=== PATIENT | male | born 1995 | race Two or more races ===

== ENCOUNTER 2024-08-06 20:32 | Emergency (ER) | payer MEDICAID, SELFPAY ==
[2024-08-06 20:56] VITALS: BP 150/90; PULSE 69; RESP 16; TEMP 37.3; O2SAT 98; BMI 25.0
--- NOTE | 2024-08-06 21:04 | XR_ITS ---
Examination: CT abdomen and pelvis without contrast. Coronal 3-D reconstructions. Sagittal 2-D reconstructions. Date and time of exam: August 06, 2024 at 2131 hrs. Indications: Lower back and bilateral flank pain beginning 3 days ago CTDI: vol (mGy): 11.97 DLP: (mGycm): 692 Technique: Axial images of the abdomen have been obtained, 3 mm slice thickness Intravenous contrast material has not been administered. Low dose protocols were performed. One or more of the following dose reduction techniques were used; automated exposure control, adjustment of the mA and/or KV according to patient size, use of iterative reconstruction technique. Findings: No focal liver or splenic lesions No gallstones No pancreatic or adrenal mass No renal or ureteral calculi, no hydronephrosis Aorta normal size Normal appendix No bowel obstruction Contracted urinary bladder, no bladder calculi No prostatomegaly Osseous structures are intact Impression: No renal or ureteral calculi, no hydronephrosis Normal appendix No bladder mass or bladder calculi
--- NOTE | 2024-08-06 21:04 | PD.EDRME ---
Rapid Medical Screening Exam RME Arrival date/time: 08/06/24 20:32 29-year-old male presents emergency department complaining of bilateral flank pain with nausea that started this past Tuesday. Chief Complaint: Back Pain/Injury Time Seen by Provider: 08/06/24 20:43 Vital signs: Vital Signs Temperature 99.1 F 08/06/24 20:56 Pulse Rate 69 08/06/24 20:56 Respiratory Rate 16 08/06/24 20:56 Blood Pressure 150/90 H 08/06/24 20:56 Pulse Oximetry (%) 98 08/06/24 20:56 Oxygen Delivery Method Room Air 08/06/24 20:56 Vital signs reviewed by provider: Yes
[2024-08-06 21:49] LABS: Collection Type, Urine Clean Catch; Squamous Epithelial Cell,Urine 0 /hpf (0-5)
[2024-08-06 21:55] LABS: Basophils % (Auto) 0 % (0-2.5); Eosinophils # (Auto) 0.2 Thou/mm3 (0.0-0.5); Eosinophils % (Auto) 1 % (0-10); Hematocrit 41.8 % (41.0-53.0); Hemoglobin 14.3 g/dL (13.5-16.0); Immature Granulocytes % (Auto) 0 % (0-0); Immature Granulocytes Auto 0.03 Thou/mm3 (0.00-0.00); Lymphocytes # (Auto) 1.9 Thou/mm3 (1.0-4.8); Lymphocytes % (Auto) 18 % (10-50); Mean Corpuscular HGB Conc 34.2 g/dl (31.0-37.0); Mean Corpuscular Hemoglobin 30.5 pg (25.0-35.0); Mean Corpuscular Volume 89 fL (80-100); Monocytes # (Auto) 1.1 Thou/mm3 (0.0-0.8); Monocytes % (Auto) 10 % (0-12); Neutrophils # (Auto) 7.5 Thou/mm3 (1.8-7.7); Neutrophils % (Auto) 70 % (37-80); Nucleated Red Blood Cell % 0 /100 WBC (0); Platelet Count 238 Thou/mm3 (140-440); RDW Standard Deviation 39.4 fL (35.1-43.9); Red Blood Count 4.69 Miln/mm3 (4.50-5.90); White Blood Count 10.7 Thou/mm3 (3.8-10.6)
[2024-08-06 21:58] LABS: Bilirubin,Urine Negative (Negative); Blood,Urine Negative (Negative); Clarity,Urine Clear (Clear/Hazy); Color,Urine Colorless (Lt Yel-Yel); Culture Indicated,Urine Not Indicated; Glucose, Urine Negative (Negative); Ketones,Urine Negative (Negative); Leukocyte Esterase,Urine Negative (Negative); Nitrite,Urine Negative (Negative); Protein,Urine 1+ (Neg - Trace); RBC,Urine 1 /hpf (0-3); Specific Gravity,Urine 1.006 (1.001-1.035); Urobilinogen,Urine Negative mg/dL (0.0-1.0); WBC,Urine 2 /hpf (0-5)
[2024-08-06 22:24] LABS: Alanine Aminotransferase 22 U/L (10-49); Albumin, Serum 4.8 gm/dL (3.5-5.0); Albumin/Globulin Ratio 1.9 (1.2-2.2); Alkaline Phosphatase 74 U/L (46-116); Anion Gap 9 (7-16); Aspartate Amino Transferase 21 U/L (0-34); BUN/Creatinine Ratio 9 Ratio (12-20); Bilirubin,Total 1.2 mg/dL (0.3-1.2); Blood Urea Nitrogen 14 mg/dL (9-23); Calcium 9.7 mg/dL (8.3-10.6); Calcium (Corrected) 9.7 mg/dL (8.5-10.1); Carbon Dioxide 26.9 mMol/L (20.0-31.0); Chloride 104 mMol/L (98-107); Creatinine (Component) 1.6 mg/dL (0.6-1.3); Estimated Creatinine Clearance 60.4 mL/min (>60); Globulin 2.5 gm/dL (2.3-3.5); Glucose 98 mg/dL (74-106); Lipase 30 U/L (12-53); Osmolality,Calculated 279 (275-295); Potassium 3.6 mMol/L (3.4-5.1); Sodium 140 mMol/L (136-145); Total Protein 7.3 gm/dL (5.7-8.2); eGFR 59 See Note
--- NOTE | 2024-08-06 23:10 | EDNOTE_ITS ---
<Statement entered by Tiffanie Villeda MD - 08/13/24 17:49> As co-signing physician, I was present and available for consult prn. I concur with the plan and care as documented by the midlevel provider. ED Back Injury Pain RME/HPI General Chief Complaint: Back Pain/Injury Stated Complaint: LOWER BACK PAIN Time Seen by Provider: 08/06/24 20:43 Source: patient Arrival date/time: 08/06/24 20:32 29-year-old male presents emergency department complaining of bilateral flank pain with nausea that started this past Tuesday. Patient denies any fever, chills, vomiting, diarrhea, hematuria, dysuria, or any other associated symptom. Mode of arrival: ambulatory Limitations: no limitations RME / HPI RME / HPI Narrative: 08/06/24 20:32 29-year-old male presents emergency department complaining of bilateral flank pain with nausea that started this past Tuesday. Related Data Previous Rx's ?Medication ?Instructions ?Recorded hydrocodone 5 mg-acetaminophen 325 1 tab PO BID PRN pain #10 tabs 08/06/24 mg tablet Allergies Allergy/AdvReac Type Severity Reaction Status Date / Time No Known Allergies Allergy Verified 08/06/24 20:35 Review of Systems Review of Systems Systems Reviewed: All systems reviewed, normal except as documented Constitutional Constitutional: Reports system reviewed and no additional complaints, except as documented, Denies body ache(s), Denies chills and Denies fever(s) Eyes Eyes: Reports system reviewed and no additional complaints, except as documented and Denies change in vision ENT Ears, Nose, Mouth, and Throat: Reports system reviewed and no additional complaints, except as documented, Denies disequilibrium, Denies dizziness, Denies sore throat and Denies vertigo Cardiovascular Cardiovascular: Reports system reviewed and no additional complaints, except as documented, Denies chest pain and Denies dyspnea Respiratory Respiratory: Reports system reviewed and no additional complaints, except as documented, Denies chest congestion, Denies cough and Denies dyspnea Gastrointestinal Gastrointestinal: Reports system reviewed and no additional complaints, except as documented, Reports abdominal pain, Reports nausea and Denies vomiting Musculoskeletal Musculoskeletal: Reports system reviewed and no additional complaints, except as documented, Denies abnormal gait and Denies arthralgias Integumentary/Breasts Skin/Breast: Reports system reviewed and no additional complaints, except as documented, Denies erythema, Denies rash and Denies wounds Neurologic Neurologic: Reports system reviewed and no additional complaints, except as documented, Denies abnormal gait, Denies disequilibrium, Denies dizziness and Denies vertigo Past Medical History Social History SMOKING STATUS: Never smoker ED Exam General Limitations: Present no limitations General appearance: Present alert and in no apparent distress Head Head exam: Present atraumatic Eye Eye exam: Present normal appearance, PERRL and EOMI ENT ENT exam: Present normal exam, normal oropharynx and mucous membranes moist Neck Neck exam: Present normal inspection, full ROM and trachea midline Chest Chest inspection: Present normal inspection and symmetric chest wall rise Respiratory Respiratory exam: Present normal lung sounds bilaterally Cardiovascular Cardiovascular exam: Present regular rate, normal rhythm and normal heart sounds Abdominal Exam Abdominal exam: Present soft and normal bowel sounds Extremities Exam Extremities exam: Present normal inspection and full ROM Back Exam Back exam: Present normal inspection, full ROM, CVA tenderness (R) and CVA tenderness (L) Neurological Exam Neurological exam: Present alert, oriented X3 and CN II-XII intact Psychiatric Psychiatric exam: Present normal affect and normal mood Skin Skin exam: Present warm, dry, intact and normal color Course Quality Measures none Orders Category Date Time Status CT abdomen pelvis wo con Stat Exams 08/06/24 21:04 Completed CBC Stat Lab 08/06/24 21:48 Completed CMP [Comprehensive Metabolic Panel] Stat Lab 08/06/24 21:48 Completed Lipase Stat Lab 08/06/24 21:48 Completed Urinalysis, C/S if Indicated Stat Lab 08/06/24 21:39 Completed Vital Signs Vital signs: Vital Signs Temperature 99.1 F 08/06/24 20:56 Pulse Rate 69 08/06/24 20:56 Respiratory Rate 16 08/06/24 20:56 Blood Pressure 150/90 H 08/06/24 20:56 Pulse Oximetry (%) 98 08/06/24 20:56 Oxygen Delivery Method Room Air 08/06/24 20:56 98% room air within normal limits Back Pain / Injury MDM Narrative MDM Narrative:: 29-year-old male presents emergency department complaining of bilateral flank pain with nausea that started this past Tuesday. Patient denies any fever, chills, vomiting, diarrhea, hematuria, dysuria, or any other associated symptom. Patient appears nontoxic and hemodynamically stable. CBC mild leukocytosis 10.7. CMP elevated creatinine 1.6 with normal LFTs. Urinalysis unremarkable. CT abdomen pelvis was unremarkable for any kidney stones or hydronephrosis. Patient's abdomen is soft and nontender. Patient possibly has acute kidney injury but do not have previous labs to compare. Patient reports works in the [employer] and is unsure if he is drinking adequate amount of water. Instructed patient to drink plenty of fluids and follow-up with primary care provider in 2 to 3 days and have repeat renal function labs done to monitor trend. Instructed to return to emergency department for any worsening symptoms or as needed. Patient data External records reviewed:: None Clinical information provided by:: patient Social determinants that could affect healthcare access:: none Patient has the following chronic illnesses:: None How is presenting disease/condition affected by chronic disease/condition?: no chronic disease Evaluation data The following diagnostics were reviewed and interpreted by me:: lab results and radiology exam(s) Lab and/or radiology exams considered but not ordered:: Ordered Interpretation Summary: Interpreted by me Medications / Prescriptions Medications or Prescriptions considered but not ordered:: N/A Medication administrations:: N/A Consultations Consultation(s) initiated? (list below): No Diagnosis Differential diagnosis back pain/injury: lumbar radiculopathy, sciatica, strain of lumbar region, renal colic, pyelonephritis, thoracic back pain, AAA, discitis and other (Acute kidney injury) Most likely diagnosis given after review of the tests above:: Back pain Admission Indicated Admission indicated?: not indicated Admission Request Was there a request for admission?: No Disposition Plan Disposition Plan: Discharge Discharge Attestation Discharge Attestation: The patient and all family members were given an opportunity to ask questions and understood the discharge instructions. Discharge instructions specifically effects, indications for sooner follow up or return to the emergency department, and the expected course of current diagnosis. Patient condition: Stable Discharge Plan Plan Patient Disposition: HOME (Self Care) Disposition Comment: Stable Prescriptions/Referrals Prescriptions/Med Rec: New hydrocodone-acetaminophen 5-325 mg tablet 1 tab PO BID MDD 2 tabs PRN (Reason: pain) Qty: 10 0RF Referrals: No Primary/Family,Physician [Primary Care Provider] - In 1 week Problem List Clinical Impression: Back pain Patient/Caregiver Discharge Instructions Discharge Activity: activity as tolerated Education Materials: Anatomy of a Normal Spine, Back Basics: A Healthy Spine Additional Instructions: Take medication as prescribed. Follow-up with primary care provider in 2 to 3 days and have repeat renal function panel and request MRI of back if symptoms persist. Return to emergency department for any worsening symptoms or as needed. Print Language: [place] Stand Alone Forms: [employer] Award Info., Patient Portal Info Letter PA/SWATCH FOLDER Supervising Physician PA/SWATCH FOLDER Supervising Physician: Dr. Villeda
[2024-08-06 23:24] VITALS: RESP 18
== END 2024-08-06 23:25 | disposition home or self-care (01) ==
PROVIDERS: Emergency Provider Emergency Medicine
DX: R10.9 Unspecified abdominal pain (principal); M54.50 Low back pain, unspecified
CPT/HCPCS: 36415; 74176; 80053; 81001; 83690; 85025; 99284

== ENCOUNTER 2024-12-31 17:25 | Emergency (ER) | payer MEDICAID, SELFPAY ==
[2024-12-31 18:53] VITALS: BP 149/90; PULSE 72; RESP 18; TEMP 37.2; O2SAT 97; BMI 24.0
--- NOTE | 2024-12-31 18:54 | PD.EDRME ---
Rapid Medical Screening Exam RME Arrival date/time: 12/31/24 17:25 Chief Complaint: Urogenital-Male Time Seen by Provider: 12/31/24 18:46 Vital signs: Vital Signs Temperature 99 F 12/31/24 18:53 Pulse Rate 72 12/31/24 18:53 Respiratory Rate 18 12/31/24 18:53 Blood Pressure 149/90 H 12/31/24 18:53 Pulse Oximetry (%) 97 12/31/24 18:53 Oxygen Delivery Method Room Air 12/31/24 18:53 RME Narrative: Urinary frequency, mild dysuria, aching b/l flank pain x1 month
[2024-12-31 19:21] LABS: Collection Type, Urine Clean Catch; Squamous Epithelial Cell,Urine 0 /hpf (0-5)
[2024-12-31 19:28] LABS: Bilirubin,Urine Negative (Negative); Blood,Urine Negative (Negative); Clarity,Urine Clear (Clear/Hazy); Color,Urine Lt-Yellow (Lt Yel-Yel); Glucose, Urine Negative (Negative); Ketones,Urine Negative (Negative); Leukocyte Esterase,Urine Negative (Negative); Nitrite,Urine Negative (Negative); PH,Urine 6.5 (5.0-7.0); Protein,Urine Negative (Neg - Trace); RBC,Urine 1 /hpf (0-3); Specific Gravity,Urine 1.023 (1.001-1.035); Urobilinogen,Urine Negative mg/dL (0.0-1.0); WBC,Urine < 1 /hpf (0-5)
[2024-12-31 19:39] LABS: Basophils % (Auto) 1 % (0-2.5); Eosinophils # (Auto) 0.2 Thou/mm3 (0.0-0.5); Eosinophils % (Auto) 2 % (0-10); Hematocrit 43.5 % (41.0-53.0); Hemoglobin 15.1 g/dL (13.5-16.0); Immature Granulocytes % (Auto) 1 % (0-0); Immature Granulocytes Auto 0.06 Thou/mm3 (0.00-0.00); Lymphocytes # (Auto) 1.9 Thou/mm3 (1.0-4.8); Lymphocytes % (Auto) 22 % (10-50); Mean Corpuscular HGB Conc 34.7 g/dl (31.0-37.0); Mean Corpuscular Hemoglobin 30.6 pg (25.0-35.0); Mean Corpuscular Volume 88 fL (80-100); Monocytes # (Auto) 0.8 Thou/mm3 (0.0-0.8); Monocytes % (Auto) 9 % (0-12); Neutrophils # (Auto) 5.8 Thou/mm3 (1.8-7.7); Neutrophils % (Auto) 65 % (37-80); Nucleated Red Blood Cell % 0 /100 WBC (0); Platelet Count 236 Thou/mm3 (140-440); RDW Standard Deviation 39.8 fL (35.1-43.9); Red Blood Count 4.93 Miln/mm3 (4.50-5.90); White Blood Count 8.8 Thou/mm3 (3.8-10.6)
[2024-12-31 19:59] LABS: Alanine Aminotransferase 29 U/L (10-49); Albumin, Serum 4.9 gm/dL (3.5-5.0); Albumin/Globulin Ratio 1.8 (1.2-2.2); Alkaline Phosphatase 77 U/L (46-116); Anion Gap 9 (7-16); Aspartate Amino Transferase 25 U/L (0-34); BUN/Creatinine Ratio 19 Ratio (12-20); Bilirubin,Total 0.8 mg/dL (0.3-1.2); Blood Urea Nitrogen 17 mg/dL (9-23); Calcium 9.4 mg/dL (8.3-10.6); Calcium (Corrected) 9.4 mg/dL (8.5-10.1); Carbon Dioxide 26.1 mMol/L (20.0-31.0); Chloride 103 mMol/L (98-107); Creatinine (Component) 0.9 mg/dL (0.6-1.3); Estimated Creatinine Clearance 107.3 mL/min (>60); Globulin 2.7 gm/dL (2.3-3.5); Glucose 92 mg/dL (74-106); Osmolality,Calculated 277 (275-295); Potassium 3.7 mMol/L (3.4-5.1); Sodium 138 mMol/L (136-145); Total Protein 7.6 gm/dL (5.7-8.2); eGFR > 60 See Note
--- NOTE | 2024-12-31 21:31 | PD.EDMALE ---
ED Male Genitalurinary RME/HPI General Chief complaint: Urogenital-Male Stated complaint: FLANK PAIN X1 WEEK INCREASED URINATION Time Seen by Provider: 12/31/24 18:46 Source: patient, RN notes reviewed and old records reviewed Arrival date/time: 12/31/24 17:25 Mode of arrival: ambulatory Limitations: no limitations RME / HPI RME / HPI Narrative: 29yom presents to ED for urinary frequency and aching bilateral flank painx1 month. Patient reports mild dysuria that started today. No fever, nausea/vomiting, abdominal pain, hematuria, penile discharge or rash/lesion reported. No medications or treatments since onset. Related Data Previous Rx's ?Medication ?Instructions ?Recorded hydrocodone 5 mg-acetaminophen 325 1 tab PO BID PRN pain #10 tabs 08/06/24 mg tablet acetaminophen 500 mg tablet 500 mg PO Q6H PRN pain #30 tabs 12/31/24 (Tylenol Extra Strength) ibuprofen 600 mg tablet 600 mg PO Q6H PRN pain #20 tabs 12/31/24 Allergies Allergy/AdvReac Type Severity Reaction Status Date / Time No Known Allergies Allergy Verified 08/06/24 20:35 Review of Systems Review of Systems Systems Reviewed: All systems reviewed, normal except as documented Constitutional Constitutional: Denies chills and Denies fever(s) Gastrointestinal Gastrointestinal: Denies abdominal pain, Denies nausea and Denies vomiting Genitourinary Genitourinary: Reports dysuria, Reports flank pain, Denies genital lesions, Denies hematuria, Denies penile discharge, Denies testicular pain and Reports urinary frequency Past Medical History Surgical History OTHER SURGICAL HX: Denies past surgical history Social History SMOKING STATUS: Never smoker SUBSTANCE USE: does not use ALCOHOL: Never Past Medical History Comments PMH COMMENT: Denies past medical history ED Exam General Limitations: Present no limitations General appearance: Present alert and in no apparent distress Head Head exam: Present atraumatic and normocephalic Eye Eye exam: Present normal appearance, PERRL and EOMI ENT ENT exam: Present normal exam and mucous membranes moist Neck Neck exam: Present normal inspection and full ROM Chest Chest inspection: Present normal inspection and symmetric chest wall rise Respiratory Respiratory exam: Present normal lung sounds bilaterally; Absent respiratory distress Cardiovascular Cardiovascular exam: Present regular rate and normal rhythm Abdominal Exam Abdominal exam: Present soft; Absent distention, tenderness, guarding or rebound Extremities Exam Extremities exam: Present normal inspection and full ROM; Absent pedal edema Back Exam Back exam: Absent CVA tenderness (R) or CVA tenderness (L) Neurological Exam Neurological exam: Present alert and oriented X3 Psychiatric Psychiatric exam: Present normal affect and normal mood Skin Skin exam: Present warm, dry, intact and normal color Course Quality Measures none Orders Category Date Time Status CBC Stat Lab 12/31/24 19:24 Completed CMP [Comprehensive Metabolic Panel] Stat Lab 12/31/24 19:24 Completed UA [Urinalysis] Stat Lab 12/31/24 19:04 Completed Vital Signs Vital signs: Vital Signs Temperature 99 F 12/31/24 18:53 Pulse Rate 72 12/31/24 18:53 Respiratory Rate 18 12/31/24 18:53 Blood Pressure 149/90 H 12/31/24 18:53 Pulse Oximetry (%) 97 12/31/24 18:53 Oxygen Delivery Method Room Air 12/31/24 18:53 Urogenital - Male MDM Narrative MDM Narrative:: 29yom presents to ED for urinary frequency and aching bilateral flank painx1 month. Patient reports mild dysuria that started today. No fever, nausea/vomiting, abdominal pain, hematuria, penile discharge or rash/lesion reported. No medications or treatments since onset. ED workup reassuring. No evidence of JANEEN. No evidence of UTI. Recommended close follow-up with PCP if symptoms persist or worsen. Encouraged adequate fluids, Motrin/Tylenol prn pain. Stable for discharge, RTED precautions given. Patient data External records reviewed:: None (No prior visits) Clinical information provided by:: patient Social determinants that could affect healthcare access:: other (specify) (Poor access to healthcare, acculturation difficulty) Patient has the following chronic illnesses:: None How is presenting disease/condition affected by chronic disease/condition?: no chronic disease Evaluation data The following diagnostics were reviewed and interpreted by me:: lab results Lab and/or radiology exams considered but not ordered:: CT abdomen/pelvis: Do not suspect kidney stone or pyelonephritis at this time Interpretation Summary: wbc 8.8 cr 0.9 UA negative Medications / Prescriptions Medications or Prescriptions considered but not ordered:: No antibiotics recommended at this time Medication administrations:: None Consultations Consultation(s) initiated? (list below): No Diagnosis Urogenital Male Differential Diagnosis: urinary tract infection, urethritis, epididymitis and acute retention of urine Most likely diagnosis given after review of the tests above:: Urinary frequency Admission Indicated Admission indicated?: not indicated Admission Request Was there a request for admission?: No Disposition Plan Disposition Plan: Discharge Discharge Attestation Discharge Attestation: The patient and all family members were given an opportunity to ask questions and understood the discharge instructions. Discharge instructions specifically effects, indications for sooner follow up or return to the emergency department, and the expected course of current diagnosis. Patient condition: Stable Discharge Plan Plan Patient Disposition: HOME (Self Care) Patient condition on transfer: Stable Prescriptions/Referrals Prescriptions/Med Rec: New ibuprofen 600 mg tablet 600 mg PO Q6H PRN (Reason: pain) Qty: 20 0RF acetaminophen [Tylenol Extra Strength] 500 mg tablet 500 mg PO Q6H PRN (Reason: pain) Qty: 30 0RF No Action hydrocodone-acetaminophen 5-325 mg tablet 1 tab PO BID MDD 2 tabs PRN (Reason: pain) Qty: 10 0RF Referrals: No Primary/Family,Physician [Primary Care Provider] - In 1 week Problem List Clinical Impression: Urinary frequency, Flank pain Patient/Caregiver Discharge Instructions Education Materials: ED Flank Pain, Uncertain Cause Additional Instructions: Make sure to stay hydrated and drink plenty of fluids. Ibuprofen and Tylenol can be alternated every 4-6 hours as needed for pain. Follow-up with your primary care physician in clinic if symptoms persist or worsen. Print Language: [place] Stand Alone Forms: [employer] Award Info., Patient Portal Info Letter PA/MODESTO Supervising Physician PA/MODESTO Supervising Physician: Charlee
== END 2024-12-31 21:36 | disposition home or self-care (01) ==
PROVIDERS: Physician Assistant; Emergency Provider Emergency Medicine
DX: R10.9 Unspecified abdominal pain (principal); R35.0 Frequency of micturition
CPT/HCPCS: 36415; 80053; 81001; 85025; 99283